=== PATIENT | male | born 1975 ===

== ENCOUNTER 2017-06-09 05:16 | Observation (INO) | payer OTHER ==
[2017-06-09 05:39] VITALS: TEMP 98.7
[2017-06-09] MEDS ORDERED: Sodium Chloride 0.9% 1,000 ML IV STA (05:40)
--- NOTE | 2017-06-09 05:57 | ED PDOC ---
HPI: Abdomen Time Seen by Provider: 06/09/17 05:37 Chief Complaint (Nursing): Abdominal Pain Chief Complaint (Provider): Abdominal Pain History Per: Patient History/Exam Limitations: no limitations Onset/Duration Of Symptoms: Hrs (x1) Outside of [place] travel?: No Current Symptoms Are (Timing): Still Present Pain Scale Rating Of: 6 Location Of Pain/Discomfort: LLQ Associated Symptoms: Back Pain (radiates to back). denies: Fever, Nausea, Vomiting, Diarrhea, Chest Pain, Constipation, Urinary Symptoms Additional Complaint(s): 41 year old male presents to ED with complaints of abdominal pain x1 hour and has a past medical history of Crohn's disease and kidney stones. Patient notes acute onset of LLQ pain rated 6/10 in intensity that awoke him from sleep. (+) radiation of pain to back and to tip of penis, (-) nausea, vomiting, diarrhea, fever, cough, SOB, chest pain, or urinary symptoms. Confirms that this presentation is similar to past experience of kidney stones. PCP: Zachary Flor Past Medical History Reviewed: Historical Data, Nursing Documentation, Vital Signs Vital Signs: Last Vital Signs Temp 98.7 F 06/09/17 09:30 Pulse 64 06/09/17 09:30 Resp 18 06/09/17 09:30 BP 114/69 06/09/17 09:30 Pulse Ox 100 06/10/17 16:02 - Medical History PMH: Asthma (seasonal), Crohn's Disease, Kidney Stones Denies: No Chronic Diseases - Surgical History Surgical History: Denies: No Surg Hx Other surgeries: Circumcision - Family History Family History: States: No Known Family Hx - Social History Alcohol: None - Home Medications Home Medications: Ambulatory Orders Medication Instructions Recorded No Known Home Med 06/09/17 - Allergies Allergies/Adverse Reactions: Allergies Allergy/AdvReac Type Severity Reaction Status Date / Time apple Allergy ITCHING Verified 06/09/17 07:48 carrot Allergy ITCHING Verified 06/09/17 07:48 celery Allergy ITCHING Verified 06/09/17 07:48 Review of Systems ROS Statement: Except As Marked, All Systems Reviewed And Found Negative Constitutional: Negative for: Fever Cardiovascular: Negative for: Chest Pain Respiratory: Negative for: Cough, Shortness of Breath Gastrointestinal: Positive for: Abdominal Pain. Negative for: Nausea, Vomiting , Diarrhea Genitourinary Male: Positive for: Penile Pain (abdominal pain radiates to tip of penis). Negative for: Dysuria, Frequency, Incontinence, Hematuria Musculoskeletal: Positive for: Back Pain (abdominal pain radiates to back) Physical Exam - Reviewed Nursing Documentation Reviewed: Yes Vital Signs Reviewed: Yes - Physical Exam Appears: Positive for: Non-toxic, No Acute Distress Head Exam: Positive for: ATRAUMATIC Skin: Positive for: Normal Color, Warm, Dry Eye Exam: Positive for: Normal appearance, EOMI, PERRL ENT: Positive for: Normal ENT Inspection Neck: Positive for: Normal, Painless ROM, Supple Cardiovascular/Chest: Positive for: Regular Rate, Rhythm. Negative for: Murmur Respiratory: Positive for: Normal Breath Sounds. Negative for: Respiratory Distress Gastrointestinal/Abdominal: Positive for: Soft. Negative for: Tenderness Back: Positive for: Normal Inspection Extremity: Positive for: Normal ROM. Negative for: Deformity Neurologic/Psych: Positive for: Alert, Oriented. Negative for: Motor/Sensory Deficits - Laboratory Results Result Diagrams: 06/09/17 05:50 06/09/17 05:50 - ECG O2 Sat by Pulse Oximetry: 100 (RA) Pulse Ox Interpretation: Normal Medical Decision Making Medical Decision Makin Initial impression: LLQ pain in setting of known kidney stones and Crohn's disease Initial plan: * Labs * NS IV * Toradol 10mg IVP * UA * Re-eval 0632 Patient put on OBS ED All further documentation will take place in ED OBS section of the chart. Scribe Attestation: Documented by Alicia Mcgee acting as a scribe for Norm Torres MD. Scribe Attestation: All medical record entries made by the Scribe were at my direction and personally dictated by me. I have reviewed the chart and agree that the record accurately reflects my personal performance of the history, physical exam, medical decision making, and the department course for this patient. I have also personally directed, reviewed, and agree with the discharge instructions and disposition. ED OBSERVATION Date of observation admission: 06/09/17 Time of observation admission: 06:32 - Observation admission statement Patient is being placed in observation because:: Pending CT - Goals of Observation Goals of observation are:: CT results - Progress Note Progress Note: 06/09/17 06:33 Patient is resting comfortably. Vitals stable. Patient will be signed out to Dr. Waggoner pending CT and labs. Disposition - Clinical Impression Clinical Impression: Abdominal pain - Disposition Disposition Time: 06:32 Condition: STABLE Patient Signed Over To: Alisa Waggoner (at 0700) Handoff Comments: Pending CT and labs - Pt Status Changed To: Hospital Disposition Of: Observation
[2017-06-09 06:11] LABS: BASO # 0.1 K/uL (0.0-0.2); BASO % 0.9 % (0.0-2.0); EOS # 0.2 K/uL (0.0-0.7); EOS % 3.3 % (0.0-4.0); HEMOGLOBIN 13.7 g/dL (12.0-18.0); LYMPH # 2.2 K/uL (1.0-4.3); LYMPH % 35.3 % (20.0-40.0); MEAN CELL VOLUME 88.8 fl (80.0-94.0); MEAN CORPUSCULAR HGB CONC 33.8 g/dL (33.0-37.0); MEAN PLATELET VOLUME 7.6 fl (7.2-11.7); MONO # 0.6 K/uL (0.0-0.8); NEUT # 3.1 K/uL (1.8-7.0); NEUT % 50.5 % (50.0-75.0); NRBC % 0.1 % (0.0-0.0); RBC 4.56 Mil/uL (4.40-5.90); WHITE BLOOD COUNT 6.2 K/uL (4.8-10.8)
[2017-06-09 06:21] LABS: ALB/GLOB RATIO 1.3 (1.0-2.1); ALBUMIN 3.9 g/dL (3.5-5.0); ALT/SGPT 45 U/L (21-72); AST/SGOT 38 U/L (17-59); BLOOD UREA NITROGEN 20 mg/dl (9-20); GFR AFRICAN-AMERICAN > 60; GFR NON-AFRICAN AMERICAN > 60
--- NOTE | 2017-06-09 07:11 | ED PDOC ---
- Laboratory Results Result Diagrams: 06/09/17 05:50 06/09/17 05:50 - ECG O2 Sat by Pulse Oximetry: 100 (RA) - CT Scan/US CT abd/pelvis Other Rad Studies (CT/US): Radiology Report Reviewed (Mild hepatomegaly. Two punctate nonobstructing right lower pole renal calculi. Sigmoid diverticulosis without evidence of diverticulitis. Otherwise unremarkable examination.) Disposition - Clinical Impression Clinical Impression: Sigmoid diverticulosis - POA Present On Arrival: None - Disposition Disposition: Routine/Home Disposition Time: 09:26 Condition: STABLE Addendum Addendum: 06/09/17 07:11 Pt signed out by Dr. Torres pending CT.
[2017-06-09 07:37] LABS: URINE BACTERIA RARE (<OCC); URINE BILIRUBIN NEGATIVE (NEGATIVE); URINE BLOOD MODERATE (NEGATIVE); URINE CLARITY CLEAR (Clear); URINE COLOR YELLOW (YELLOW); URINE GLUCOSE (UA) NEG (Normal); URINE LEUKOCYTE ESTERASE NEG Leu/uL (Negative); URINE NITRATE NEGATIVE (NEGATIVE); URINE PROTEIN NEGATIVE (NEGATIVE); URINE UROBILINOGEN 0.2-1.0 mg/dL (0.2-1.0)
--- NOTE | 2017-06-09 09:18 | CT ---
PROCEDURE: CT Abdomen and Pelvis without intravenous contrast HISTORY: LLQ pain COMPARISON: None. TECHNIQUE: Without contrast.. Contrast Dose: 0 Radiation dose: Total exam DLP = 835.81 mGy-cm. This CT exam was performed using one or more of the following dose reduction techniques: Automated exposure control, adjustment of the mA and/or kV according to patient size, and/or use of iterative reconstruction technique. FINDINGS: LOWER THORAX: Unremarkable. LIVER: Mildly enlarged, measuring 19.7 cm craniocaudal. Smooth contour. No mass. No biliary dilatation. GALLBLADDER AND BILE DUCTS: Unremarkable. PANCREAS: Unremarkable. No gross lesion or ductal dilatation. SPLEEN: Unremarkable. ADRENALS: Unremarkable. No mass. KIDNEYS AND URETERS: Two punctate right lower pole renal calculi, nonobstructing. No mass. No hydronephrosis. VASCULATURE: Unremarkable. No aortic aneurysm. BOWEL: Sigmoid diverticulosis without evidence of diverticulitis. Mild mural thickening of the sigmoid colon consistent with chronic muscular hypertrophy. No bowel obstruction. No other abnormal bowel loops. APPENDIX: Unremarkable. Normal appendix. PERITONEUM: Unremarkable. No free fluid. No free air. LYMPH NODES: Unremarkable. No enlarged lymph nodes. BLADDER: Nondistended REPRODUCTIVE: Normal prostate BONES: No acute fracture. OTHER FINDINGS: None. IMPRESSION: Mild hepatomegaly. Two punctate nonobstructing right lower pole renal calculi. Sigmoid diverticulosis without evidence of diverticulitis. Otherwise unremarkable examination.
[2017-06-09 09:31] VITALS: BP 114/69; PULSE 64; RESP 18
[2017-06-10 16:02] VITALS: O2SAT 100
== END 2017-06-09 09:31 | disposition home or self-care (01) ==
LOC: H.ER 05:16 → H.EROBSV 06:32
PROVIDERS: ADMIT Emergency Medicine; ATTEND Emergency Medicine
DX: K57.30 Diverticulosis of large intestine without perforation or abscess without bleeding (principal); J45.909 Unspecified asthma, uncomplicated; K50.90 Crohn's disease, unspecified, without complications; Z87.442 Personal history of urinary calculi